=== PATIENT | female | born 1945 | race Caucasian/White ===

== ENCOUNTER 2020-06-23 00:27 | Emergency (ER) | payer MEDICARE, BC ==
[~2020-06-23] VITALS: Ht 160 cm; Wt 61.8 kg
[~2020-06-23 00:27] MED LIST: ARMOUR THYROID30 MG PO; AZITHROMYCIN500 MG PO; BISOPROLOL-HCT1 EAC3 PO; DILTIAZEM 24HR180 M4 PO; LOTENSIN20 MG; LOTENSIN20 MG PO; MIRALAX17 GM PO; NORVASC5 MG PO; OMNICEF300 MG PO; SYNTHROID100 MCG PO; SYNTHROID50 MCG PO; ZOFRAN4 MG PO
[2020-06-23 00:33] VITALS: Ht 160 cm; Wt 61.8 kg
[2020-06-23] MEDS ORDERED: VALIUM 2 MG TAB2 MG PO (00:37)
[2020-06-23] MEDS ORDERED: ULTRAM50 MG PO (00:37)
[2020-06-23 01:05] LABS: BASOPHILS 0.9 % (0-2); EOSINOPHILS 1.7 % (0-7); HEMOGLOBIN 11.2 g/dL (12-16); IMMATURE GRANULOCYTES 0.3 % (0-5); LYMPHOCYTE ABS# 0.35 10x3/uL (1.18-3.74); MCH 27.9 pg (26.0-34.0); MCHC 31.1 g/dL (31.0-37.0); MCV 89.8 fL (80.0-100.0); MEAN PLATELET VOLUME 10.6 fL (7.4-10.4); MONOCYTES 19.2 % (2-11); NEUTROPHIL ABS# 2.37 10x3/uL (1.56-6.13); NEUTROPHILS 67.9 % (40-80); PLATELET COUNT 241 10x3/uL (130-400); RBC 4.01 10x6/uL (4.00-5.40); RDW 18.3 % (11.5-14.5); WBC 3.5 10x3/uL (4.8-10.8)
[2020-06-23 01:25] LABS: CALC OSMOLALITY 278 mosm/kg (275-300); CALCIUM 7.9 mg/dL (8.5-10.1); CARBON DIOXIDE 28.6 mmol/L (21.0-32.0); CHLORIDE - SERUM 105 mmol/L (98-107); CREATININE - SERUM 0.7 mg/dL (0.6-1.3); GLUCOSE 87 mg/dL (74-106); POTASSIUM - SERUM 3.8 mmol/L (3.5-5.1); SODIUM 140 mmol/L (136-145); UREA NITROGEN 14 mg/dL (7-18); eGFR NON AFRICAN AMERICAN 87 mL/min (90-120)
[2020-06-23 01:40] LABS: ALBUMIN 3.1 g/dL (3.4-5.0); ALKALINE PHOSPHATASE 129 U/L (30-120); ALT (SGPT) 22 U/L (10-68); BILIRUBIN - TOTAL 0.26 mg/dL (0.2-1.3); CKMB 0.5 U/L (0.0-3.6); CREATINE KINASE 66 UL (21-215); MAGNESIUM - SERUM 1.9 mg/dL (1.8-2.4); PROTEIN - SERUM 6.3 g/dL (6.4-8.2)
[2020-06-23 01:43] LABS: TROPONIN-I < 0.017 ng/mL (0.000-0.060)
[2020-06-23 02:01] LABS: BILIRUBIN NEGATIVE (NEGATIVE); KETONE NEGATIVE (NEGATIVE); NITRITE NEGATIVE (NEGATIVE); UROBILINOGEN NORMAL mg/dL (< 2)
[2020-06-23 02:02] LABS: BACTERIA FEW HPF (NONE SEEN); SQUAMOUS EPITHELIAL 0-5 HPF (0-4); WHITE CELLS - URINE 0-5 HPF (0-4)
[2020-06-23 02:24] VITALS: BP 163/91
== END 2020-06-23 02:25 | disposition home or self-care (01) ==
LOC: D.ER 00:27
PROVIDERS: Family Medicine
DX: I10 Essential (primary) hypertension (principal); T88.1XXA Other complications following immunization, not elsewhere classified, initial encounter